=== PATIENT | female | born 1985 | race Caucasian/White ===

== ENCOUNTER 2020-05-09 12:11 | Outpatient (CLI) | payer MEDICAID | END 2020-05-09 23:59 | disposition home or self-care (01) | LOC: STAR 12:11 | PROVIDERS: ATTEND Orthopaedic Surgery | DX: Z20.822 Contact with and (suspected) exposure to COVID-19 (principal) | CPT/HCPCS: U0003 ==

== ENCOUNTER 2020-05-12 12:24 | Day surgery (SDC) | payer MEDICAID, OTHER ==
[~2020-05-12] VITALS: Ht 160 cm; Wt 61.8 kg
[2020-05-12] MEDS ORDERED: METH10TA3 PO (12:54)
[2020-05-12] MEDS ORDERED: PROPOFOL 50 ML ONE (12:55)
[2020-05-12] MEDS ORDERED: MIDAZOLAM 1 MG/ML, 2ML ONE (12:55)
[2020-05-12] MEDS ORDERED: FENTANYL PF 250 MCG/5ML ONE (12:56)
[2020-05-12] MEDS ORDERED: LACTATED RINGERS 1,000 ML IV SCH (13:00)
[2020-05-12] MEDS ORDERED: CHLORHEXIDINE 15 ML UDC MM ONE (13:00)
[2020-05-12 13:03] VITALS: BP 113/77
[2020-05-12 13:05] LABS: HCG UR SG 1.013 (1.003-1.030)
[2020-05-12] MEDS ORDERED: ONDANSETRON 2MG/ML, 2ML ONE (13:26)
[2020-05-12] MEDS ORDERED: DEXAMETHASONE 4 MG/ML, 5ML ONE (13:26)
[2020-05-12] MEDS ORDERED: PROPOFOL 10 MG/ML, 20ML ONE (13:26)
[2020-05-12] MEDS ORDERED: DIPHENHYDRAMINE 50 MG/ML, 1ML IVPush PRN (13:30)
[2020-05-12] MEDS ORDERED: ACETAMINOPHEN 325 MG TABLET PO PRN (13:30)
[2020-05-12] MEDS ORDERED: OXYcodone 5 MG/5 ML ORAL.SOL UDC PO PRN (13:30)
[2020-05-12] MEDS ORDERED: LABETALOL 5MG/ML, 20ML IV PRN (13:30)
[2020-05-12] MEDS ORDERED: EPHEDRINE 50 MG/ML, 1ML IM PRN (13:30)
[2020-05-12] MEDS ORDERED: DIAZEPAM 5 MG/ML, 2ML IVPush PRN (13:30)
[2020-05-12] MEDS ORDERED: PROMETHAZINE 25 MG/ML, 1ML IVPush PRN (13:30)
[2020-05-12] MEDS ORDERED: MEPERIDINE/PF 25MG/0.5ML IVPush PRN (13:30)
[2020-05-12] MEDS ORDERED: ONDANSETRON 2MG/ML, 2ML IVPush PRN (13:30)
[2020-05-12] MEDS ORDERED: FENTANYL PF 100 MCG/2ML IV PRN (13:30)
[2020-05-12] MEDS ORDERED: morphine SULFATE 10 MG/ML, 1ML IVPush PRN (13:30)
[2020-05-12] MEDS ORDERED: EPHEDRINE 50 MG/ML, 1ML IVPush PRN (13:30)
[2020-05-12] MEDS ORDERED: FENTANYL PF 100 MCG/2ML ONE (14:04)
[2020-05-12] MEDS ORDERED: ACETAMINOPHEN 650 MG/20.3 ML UDC ONE (14:04)
[2020-05-12] MEDS ORDERED: OXYcodone 5 MG/5 ML ORAL.SOL UDC ONE (14:04)
== END 2020-05-12 16:00 | disposition home or self-care (01) ==
LOC: OUT 12:24
PROVIDERS: ATTEND Orthopaedic Surgery
DX: S62.336A Displaced fracture of neck of fifth metacarpal bone, right hand, initial encounter for closed fracture (principal); X58.XXXA Exposure to other specified factors, initial encounter; Y93.89 Activity, other specified; Y92.89 Other specified places as the place of occurrence of the external cause; Y99.8 Other external cause status; Z79.899 Other long term (current) drug therapy; F12.90 Cannabis use, unspecified, uncomplicated; Z72.89 Other problems related to lifestyle
CPT/HCPCS: 26608; 73140; 81025; C1713; J1100; J2250; J2405; J2704; J3010; J7120; 76000